=== PATIENT | female | born 1960 | race Caucasian/White ===

== ENCOUNTER 2021-01-13 16:04 | Emergency (ER) | payer OTHER ==
[~2021-01-13] VITALS: Ht 172 cm; Wt 115.0 kg
[2021-01-13] MEDS ORDERED: NS IV 1000 ML 1,000 ML IV STA (16:44)
[2021-01-13] MEDS ORDERED: ONDANSETRON 4 MG/2 ML (SDV) Z0FRAN IVP STA (16:44)
--- NOTE | 2021-01-13 17:05 | ED General ---
General Chief Complaint: General Problems/Pain Stated Complaint: NAUSEA; LETHARGY; COVID+ Nursing Triage Note: PT WAS DIAGNOSED WITH COVID ON TUESDAY OF LAST WEEK WITH SYMPTOMS STARTING ON TUESDAY. SHE COMES INTO ER TODAY BECAUSE SHE IS TIRED AND NAUSEATED. PT HAS NOT CONTACTED [facility] PCP FOR TREATMENT OPTIONS. Source of Information: Patient History of Present Illness Date Seen by Provider: Jan 13, 2021 Time Seen by Provider: 16:09 Initial Comments 60-year-old female presenting with complaints of nausea and vomiting since Tuesday when she was diagnosed with Covid. She has had generalized fatigue and weakness. She has mild cough but her main symptoms are nausea, vomiting, fatigue. She has not seen her primary provider contacted them about getting anything for nausea. She denies any pain or burning with urination. She states that she has had some small amounts of loose stool when she vomits. Timing/Duration: 4-5 Days Severity: Moderate Associated Systoms: No Chest Pain; Cough; No Diaphoresis; Fever/Chills, Headaches, Loss of Appetite, Malaise, Nausea/Vomiting; No Rash, No Seizure, No Shortness of Air, No Syncope; Weakness Allergies and Home Medications Allergies Coded Allergies: Penicillins (Verified Allergy, Unknown, 01/13/21) Home Medications Ondansetron 4 Mg Tab.rapdis, 4 MG PO Q6H PRN for NAUSEA/VOMITING Prescribed by: SUNITA ORTIZ on 01/13/21 5023 Patient Home Medication List Home Medication List Reviewed: Yes Review of Systems Review of Systems Constitutional: see HPI EENTM: nose congestion Respiratory: see HPI, cough Cardiovascular: No chest pain Gastrointestinal: nausea, vomiting Genitourinary: no symptoms reported Musculoskeletal: other (general body aches) Skin: No rash Psychiatric/Neurological: Headache, Weakness (general), Other (fatigue) Past Vlhodja-Hqnmba-Fvchpo Hx Patient Social History Tobacco Use?: No Use of E-Cig and/or Vaping dev: No Substance use?: No Alcohol Use?: No Pt feels they are or have been: No Past Medical History Surgery/Hospitalization HX: Surgeries: Yes Section Respiratory: No Cardiac: Yes Hypertension Physical Exam Vital Signs Vital Signs - First Documented 01/13/21 16:10 Temp 37.1 Pulse 89 Resp 18 B/P (MAP) 157/89 (111) Pulse Ox 97 O2 Delivery Room Air Capillary Refill : Less Than 3 Seconds Height, Weight, BMI Height: '" Weight: lbs. oz. kg; 38.00 BMI Method: General Appearance: WD/WN, Obese HEENT: PERRL/EOMI, Normal ENT Inspection, Pharynx Normal Neck: Full Range of Motion, Normal Inspection, Non Tender, Supple Respiratory: Chest Non Tender, Lungs Clear, Normal Breath Sounds, No Accessory Muscle Use, No Respiratory Distress Cardiovascular: Regular Rate, Rhythm, Normal Peripheral Pulses Gastrointestinal: Normal Bowel Sounds, No Pulsatile Mass, Non Tender, Soft Rectal: Deferred Extremity: Normal Capillary Refill, Normal Inspection, No Pedal Edema Neurologic/Psychiatric: Alert, Oriented x3, No Motor/Sensory Deficits, vein access technician II- XII Norm as Tested Skin: Normal Color, Warm/Dry; No Rash Progress/Results/Core Measures Suspected Sepsis SIRS Temperature: Pulse: 89 Respiratory Rate: 18 Laboratory Tests 01/13/21 17:00: White Blood Count 3.9L Blood Pressure 157 /89 Mean: 111 Laboratory Tests 01/13/21 17:00: Creatinine 0.85, INR Comment 0.9, Platelet Count 146, Total Bilirubin 0.3 Results/Orders Lab Results Laboratory Tests Test 01/13/21 17:00 01/13/21 17:12 Range/Units White Blood Count 3.9 L 4.3-11.0 10^3/uL Red Blood Count 5.14 4.35-5.85 10^6/uL Hemoglobin 14.8 11.5-16.0 G/DL Hematocrit 44 35-52 % Mean Corpuscular Volume 85 80-99 FL Mean Corpuscular Hemoglobin 29 25-34 PG Mean Corpuscular Hemoglobin Concent 34 32-36 G/DL Red Cell Distribution Width 12.7 10.0-14.5 % Platelet Count 146 130-400 10^3/uL Mean Platelet Volume 9.4 7.4-10.4 FL Immature Granulocyte % (Auto) 1 % Neutrophils (%) (Auto) 62 42-75 % Lymphocytes (%) (Auto) 25 12-44 % Monocytes (%) (Auto) 12 0-12 % Eosinophils (%) (Auto) 0 0-10 % Basophils (%) (Auto) 0 0-10 % Neutrophils # (Auto) 2.4 1.8-7.8 X 10^3 Lymphocytes # (Auto) 1.0 1.0-4.0 X 10^3 Monocytes # (Auto) 0.5 0.0-1.0 X 10^3 Eosinophils # (Auto) 0.0 0.0-0.3 10^3/uL Basophils # (Auto) 0.0 0.0-0.1 10^3/uL Immature Granulocyte # (Auto) 0.0 0.0-0.1 10^3/uL Percent Immature Platelet Fraction 1.2 0.0-7.6 % Prothrombin Time 12.4 12.2-14.7 SEC INR Comment 0.9 0.8-1.4 Activated Partial Thromboplast Time 24 24-35 SEC Sodium Level 133 L 135-145 MMOL/L Potassium Level 3.5 L 3.6-5.0 MMOL/L Chloride Level 96 L 98-107 MMOL/L Carbon Dioxide Level 22 21-32 MMOL/L Anion Gap 15 H 5-14 MMOL/L Blood Urea Nitrogen 12 7-18 MG/DL Creatinine 0.85 0.60-1.30 MG/DL Estimat Glomerular Filtration Rate 68 BUN/Creatinine Ratio 14 Glucose Level 97 70-105 MG/DL Calcium Level 8.3 L 8.5-10.1 MG/DL Corrected Calcium 8.6 8.5-10.1 MG/DL Total Bilirubin 0.3 0.1-1.0 MG/DL Aspartate Amino Transf (AST/SGOT) 48 H 5-34 U/L Alanine Aminotransferase (ALT/SGPT) 36 0-55 U/L Alkaline Phosphatase 79 40-136 U/L Troponin I 0.30 <0.30 NG/ML Total Protein 6.6 6.4-8.2 GM/DL Albumin 3.6 3.2-4.5 GM/DL Urine Color YELLOW Urine Clarity CLEAR Urine pH 6.0 5-9 Urine Specific Leon 1.025 H 1.016-1.022 Urine Protein NEGATIVE NEGATIVE Urine Glucose (UA) NEGATIVE NEGATIVE Urine Ketones 3+ H NEGATIVE Urine Nitrite NEGATIVE NEGATIVE Urine Bilirubin 1+ H NEGATIVE Urine Urobilinogen 0.2 < = 1.0 MG/DL Urine Leukocyte Esterase NEGATIVE NEGATIVE Urine RBC (Auto) TRACE-I NEGATIVE Urine RBC 0-2 /HPF Urine WBC 0-2 /HPF Urine Squamous Epithelial Cells 0-2 /HPF Urine Crystals NONE /LPF Urine Bacteria NEGATIVE /HPF Urine Casts NONE /LPF Urine Mucus NEGATIVE /LPF Urine Culture Indicated NO My Orders Orders - SUNITA ORTIZ MD Monitor-Rhythm Ecg Trace Only (01/13/21 16:40) Cbc With Automated Diff (01/13/21 16:40) Comprehensive Metabolic Panel (01/13/21 16:40) Crp Fs (01/13/21 16:40) Troponin I Fs (01/13/21 16:40) Protime With Inr (01/13/21 16:40) Partial Thromboplastin Time (01/13/21 16:40) Ekg Tracing (01/13/21 16:40) Ua Culture If Indicated (01/13/21 16:40) Ed Iv/Invasive Line Start (01/13/21 16:40) Ns Iv 1000 Ml (Sodium Chloride 0.9%) (01/13/21 16:44) Ondansetron Injection (Zofran Injectio (01/13/21 16:44) Chest 1 View Ap/Pa Only (01/13/21 17:05) Vital Signs/I&O 01/13/21 01/13/21 16:10 17:50 Temp 37.1 37.1 Pulse 89 87 Resp 18 18 B/P (MAP) 157/89 (111) 155/88 (111) Pulse Ox 97 97 O2 Delivery Room Air Capillary Refill : Less Than 3 Seconds Blood Pressure Mean: 111 Progress Note #1: Progress Note Check basic labs and urinalysis as well as cardiac enzymes and chest x-ray. Give her a liter of fluid for hydration and 4 mg of Zofran for nausea. Progress Note #2: Progress Note Labs appear stable without acute significant abnormality. Her nausea is doing slightly improved after treatment. As she is maintaining good oxygen saturation and has no lab findings to indicate necessity for hospital admission will discharge to home. She does have patchy infiltrates consistent with her Covid diagnosis but again is maintaining good oxygen saturation. If worsening breathing symptoms she may require antibiotic for possible bacterial pneumonia on top of her virus. Prescribed Zofran for nausea and encouraged to follow-up through the clinic for continued concerns ECG Initial ECG Impression Date: Jan 13, 2021 Initial ECG Impression Time: 17:01 Initial ECG Rate: 86 Initial ECG Rhythm: Normal Sinus Initial ECG Comparisson: No Previous ECG Available Comment Normal sinus rhythm with a heart rate of 86 bpm. Incomplete right bundle branch block. No acute ST elevation. NV interval 151 ms with a QT interval 371 ms and a QTc interval 444 ms. There is no prior tracing available for comparison. Diagnostic Imaging Diagonstic Imaging: Xray Plain Films/CT/US/NM/MRI: chest Comments [facility] [place], [place] NAME: CASSANDRA RIVERO [facility] REC#: [id number] PT STATUS: DEP ER : 1960 PHYSICIAN: SUNITA ORTIZ MD ADMIT DATE: 01/13/21/ER FS Signed Date of Exam:01/13/21 CHEST 1 VIEW AP/PA ONLY INDICATION: Cough and fatigue. Patient is Covid-19 positive. TIME OF EXAM: 5:13 PM No prior studies available for comparison. Heart size is normal. There is some patchy infiltrate in the right midlung. Otherwise, the lungs are clear. No effusion or pneumothorax is detected. IMPRESSION: Patchy right midlung infiltrate consistent with pneumonia. Dictated by: Dictated on workstation # [id number] Dict: 01/13/211730 Trans: 01/13/211914 [facility] [id number] Interpreted by: GINNA BARON MD Electronically signed by: GINNA BARON MD 01/13/211914 Reviewed: Reviewed by Me Departure Impression Primary Impression: Nausea vomiting and diarrhea Additional Impression: COVID-19 virus infection Disposition: 01 HOME, SELF-CARE Condition: Stable Departure-Patient Inst. Decision time for Depature: 17:41 Referrals: MADAI DE LEÓN APRN (PCP) Primary Care Physician [facility] (Family) Primary Care Physician Patient Instructions: Recovery After COVID-19, Nausea and Vomiting, Adult ED, COVID-19 ED Add. Discharge Instructions: Stay well hydrated and keep sipping on fluids. Use the dissolving nausea tablets to help keep your stomach settled so you can drink and eat better. Check back with clinic for continued problems/concerns. All discharge instructions reviewed with patient and/or family. Voiced understanding. Scripts Ondansetron (Ondansetron Odt) 4 Mg Tab.rapdis 4 MG PO Q6H PRN for NAUSEA/VOMITING for 5 Days, #20 TAB 1 Refill Prov: SUNITA ORTIZ MD 01/13/21 SUNITA ORTIZ MD Jan 13, 2021 17:05
[2021-01-13 17:08] LABS: BASOPHILS % (AUTO) 0 % (0-10); EOSINOPHILS % (AUTO) 0 % (0-10); HEMATOCRIT 44 % (35-52); HEMOGLOBIN 14.8 G/DL (11.5-16.0); LYMPHOCYTES % (AUTO) 25 % (12-44); MEAN CORPUSCULAR HEMOGLOBIN 29 PG (25-34); MEAN CORPUSCULAR HGB CONC 34 G/DL (32-36); MEAN CORPUSCULAR VOLUME 85 FL (80-99); MEAN PLATELET VOLUME 9.4 FL (7.4-10.4); MONOCYTES # (AUTO) 0.5 X 10^3 (0.0-1.0); MONOCYTES % (AUTO) 12 % (0-12); NEUTROPHILS # (AUTO) 2.4 X 10^3 (1.8-7.8); NEUTROPHILS % (AUTO) 62 % (42-75); PLATELET COUNT 146 10^3/uL (130-400); WHITE BLOOD COUNT 3.9 10^3/uL (4.3-11.0)
[2021-01-13 17:15] LABS: INR 0.9 (0.8-1.4); PROTHROMBIN TIME PATIENT 12.4 SEC (12.2-14.7)
[2021-01-13 17:19] LABS: BACTERIA,URINE NEGATIVE /HPF; BILIRUBIN,URINE 1+ (NEGATIVE); CLARITY,URINE CLEAR; COLOR,URINE YELLOW; GLUCOSE, URINE (UA) NEGATIVE (NEGATIVE); KETONES,URINE 3+ (NEGATIVE); LEUKOCYTE ESTERASE ,URINE NEGATIVE (NEGATIVE); NITRITE,URINE NEGATIVE (NEGATIVE); PROTEIN,URINE NEGATIVE (NEGATIVE); RBC,URINE 0-2 /HPF; WBC,URINE 0-2 /HPF
[2021-01-13 17:20] LABS: SQUAMOUS EPITHELIAL CELL,UR 0-2 /HPF
[2021-01-13 17:31] LABS: BILIRUBIN,TOTAL 0.3 MG/DL (0.1-1.0); CALCIUM 8.3 MG/DL (8.5-10.1); CREATININE SERUM 0.85 MG/DL (0.60-1.30); POTASSIUM 3.5 MMOL/L (3.6-5.0)
[2021-01-13 17:32] LABS: ALBUMIN 3.6 GM/DL (3.2-4.5); TOTAL PROTEIN 6.6 GM/DL (6.4-8.2)
--- NOTE | 2021-01-13 17:40 | Diagnostic Imaging Report ---
INDICATION: Cough and fatigue. Patient is Covid-19 positive. TIME OF EXAM: 5:13 PM No prior studies available for comparison. Heart size is normal. There is some patchy infiltrate in the right midlung. Otherwise, the lungs are clear. No effusion or pneumothorax is detected. IMPRESSION: Patchy right midlung infiltrate consistent with pneumonia. Dictated by: Dictated on workstation # [id number]
[2021-01-13] MEDS ORDERED: ONDA4TAB11 PO (17:43)
[2021-01-13 17:50] VITALS: BP 155/88
== END 2021-01-13 17:50 | disposition home or self-care (01) ==
LOC: EDUNIT# 16:04 → ER FS 16:08
DX: U07.1 COVID-19 (principal); R11.2 Nausea with vomiting, unspecified; I10 Essential (primary) hypertension; E66.9 Obesity, unspecified; Z68.38 Body mass index [BMI] 38.0-38.9, adult
CPT/HCPCS: 36415; 71045; 80053; 81000; 84484; 85025; 85610; 85730; 86141; 93005; 93041